=== PATIENT | female | born 1955 | race Caucasian/White ===

== ENCOUNTER 2019-04-21 12:17 | Outpatient (CLI) | payer OTHER | END 2019-04-21 23:59 | disposition home or self-care (01) | LOC: CFH 12:17 | PROVIDERS: ATTEND Family Medicine | DX: Z12.31 Encounter for screening mammogram for malignant neoplasm of breast (principal); M85.88 Other specified disorders of bone density and structure, other site | CPT/HCPCS: 77080; 77067 ==

== ENCOUNTER 2021-06-22 14:46 | Outpatient (CLI) | payer OTHER ==
[2021-06-22] MEDS ORDERED: MULT-449 PO (15:17)
[2021-06-22] MEDS ORDERED: MELA10TA PO (15:17)
[2021-06-22] MEDS ORDERED: citracal PO (15:17)
[2021-06-22] MEDS ORDERED: ESZO2TAB22 PO (15:17)
[2021-06-22] MEDS ORDERED: AMLO2.5T5 PO (15:17)
[2021-06-22] MEDS ORDERED: COLLAGEN PO (15:17)
[2021-06-22 15:51] LABS: BASOPHILS % (AUTO) 1 % (0-1); EOSINOPHILS % (AUTO) 1 % (1-7); LYMPHOCYTES % (AUTO) 33 % (22-44); MEAN CORPUSCULAR HEMOGLOBIN 30.6 pg (27.0-34.8); MEAN CORPUSCULAR HGB CONC 33.3 g/dL (32.4-35.8); MEAN PLATELET VOLUME 8.1 fL (7.4-10.4); MONOCYTES % (AUTO) 7 % (2-9); NEUTROPHILS % (AUTO) 58 % (42-75); PLATELET COUNT 382 x10^3/uL (130-400); RED BLOOD COUNT 4.59 x10^6/uL (3.82-5.3); RED CELL DISTRIBUTION WIDTH 12.7 % (9.6-15.2)
[2021-06-22 15:51] LABS: MICROSCOPIC AUTO
[2021-06-22 16:00] LABS: ANION GAP 3 mmol/L (5-15); CALCIUM 9.3 mg/dL (8.5-10.1); CHLORIDE 104 mmol/L (98-107); CREATININE 0.72 mg/dL (0.55-1.02)
== END 2021-06-22 23:59 | disposition home or self-care (01) ==
LOC: STAR 14:46
PROVIDERS: ATTEND Obstetrics & Gynecology Gynecology
DX: Z01.818 Encounter for other preprocedural examination (principal); N83.292 Other ovarian cyst, left side
CPT/HCPCS: 36415; 80048; 81001; 85025; 93005

== ENCOUNTER 2021-06-29 05:54 | Day surgery (SDC) | payer OTHER ==
[~2021-06-29] VITALS: Ht 152.4 cm; Wt 48.1 kg
[~2021-06-29 05:54] MED LIST: AMLO2.5T5 PO; COLLAGEN PO; ESZO2TAB22 PO; MELA10TA PO; MULT-449 PO; citracal PO
[2021-06-29 06:23] VITALS: BP 134/86
[2021-06-29] MEDS ORDERED: CHLORHEXIDINE 15 ML UDC PO ONE (06:30)
[2021-06-29] MEDS ORDERED: LACTATED RINGERS 1,000 ML IV SCH (06:30)
[2021-06-29] MEDS ORDERED: FENTANYL PF 250 MCG/5ML ONE (06:34)
[2021-06-29] MEDS ORDERED: MIDAZOLAM 1 MG/ML, 2ML ONE (06:34)
[2021-06-29] MEDS ORDERED: DIPHENHYDRAMINE 50 MG/ML, 1ML IVPush PRN (08:30)
[2021-06-29] MEDS ORDERED: KETOROLAC 30 MG/1 ML IV PRN (08:30)
[2021-06-29] MEDS ORDERED: PROMETHAZINE 25 MG/ML, 1ML IVPush PRN (08:30)
[2021-06-29] MEDS ORDERED: OXYcodone 5 MG/5 ML ORAL.SOL UDC PO PRN (08:30)
[2021-06-29] MEDS ORDERED: HYDROmorphone 1 MG/ML, 1ML INJ IVPush PRN (08:30)
[2021-06-29] MEDS ORDERED: MEPERIDINE/PF 25MG/0.5ML IVPush PRN (08:30)
[2021-06-29] MEDS ORDERED: FENTANYL PF 100 MCG/2ML IV PRN (08:30)
[2021-06-29] MEDS ORDERED: ALBUTEROL SULFATE 2.5 MG/3 ML NPPB PRN (08:30)
[2021-06-29] MEDS ORDERED: LABETALOL 5MG/ML, 20ML IV PRN (08:30)
== END 2021-06-29 10:15 | disposition home or self-care (01) ==
LOC: OUT 05:54
PROVIDERS: ATTEND Obstetrics & Gynecology Gynecology
DX: D25.9 Leiomyoma of uterus, unspecified (principal); D27.1 Benign neoplasm of left ovary; I10 Essential (primary) hypertension; G47.00 Insomnia, unspecified; Z20.822 Contact with and (suspected) exposure to COVID-19; Z79.899 Other long term (current) drug therapy; Z88.2 Allergy status to sulfonamides; Z90.49 Acquired absence of other specified parts of digestive tract
CPT/HCPCS: 58545; 58661; 87635; 88112; 88305; J2250; J3010; J7120